=== PATIENT | female | born 1975 | race Caucasian/White ===

== ENCOUNTER 2017-02-17 20:11 | Emergency (ER) | payer BC, OTHER ==
[~2017-02-17] VITALS: Ht 162.6 cm; Wt 94.9 kg
[~2017-02-17 20:11] MED LIST: ACET-1311 PO; IBUP-1050 PO; PRENTAB26 PO
[2017-02-17 20:16] VITALS: TEMP 36.4; Ht 162.6 cm; Wt 94.9 kg
[2017-02-17] MEDS ORDERED: hydrOXYzine HCL IM SOLN 50 MG/ML 1 ML VIAL IM STA (20:38)
[2017-02-17] MEDS ORDERED: hydrOXYzine HCL 25 MG TAB PO STA (20:38)
[2017-02-17] MEDS ORDERED: ATIVAN 1MG HOMEPACK PO ONE (20:45)
[2017-02-17] MEDS ORDERED: DEXAMETHASONE SOD INJ 10 MG/ML VIAL IM ONE (20:45)
[2017-02-17] MEDS ORDERED: MULT1CHW37 PO (20:48)
[2017-02-17] MEDS ORDERED: BCPILLS PO (20:48)
[2017-02-17] MEDS ORDERED: PRED20TA PO (20:48)
[2017-02-17] MEDS ORDERED: EMPTY 8 DRAM VIAL ONE (20:48)
[2017-02-17] MEDS ORDERED: HYDR-3124 PO (20:56)
--- NOTE | 2017-02-17 20:58 | EMERGENCY ROOM VISIT NOTE ---
ED Visit Note First contact with patient: 20:21 CHIEF COMPLAINT: Itchy skin rash 2 weeks HISTORY OF PRESENT ILLNESS: Patient is a 41-year-old white female who presents the emergency department accompanied by her for evaluation of an itchy skin rash 2 weeks. Patient states that her symptoms started 2 weeks ago after they were doing some weeding in their yard and she believes that she was exposed to a poison dahlia plant. She developed the typical, linear, blistering rash primarily on her forearms bilaterally. She treated it conservatively for a week with calamine lotion, but her symptoms progressively worsened and one week ago she was seen at a [facility] facility and started on an oral prednisone taper. She was started on prednisone 60 mg orally for 3 days, tapering down for a total of 18 days of prednisone therapy. Patient states that the rash on her arms began to improve, the blisters dried up and crusted over and they began to feel less itchy, but 4 days ago, Sunday night into Sunday, she began to experience some redness, warmth and itching on her face and neck. She does admit that she was outside in the heat and sun all day Sunday. She did take Benadryl that evening which helped with the itching. She has since developed a fairly confluent red raised rash on her anterior neck and face. It is itchy, and she describes it as a stinging/pins and needles sensation. She was seen again at [facility] yesterday and they recommended discontinuing the prednisone, and using Benadryl more regularly. She states the Benadryl helps to control the itch, but it returns when it wears off. She denies any fever or chills. No drainage or discharge. No eye pain, changes in vision or eye discharge, and she actually reports that she had an eye exam yesterday which was completely normal. There is no swelling of the lips, tongue or throat or difficulty breathing. She does not have any other lesions elsewhere. She denies any other changes in her topical agents including lotions , soaps and detergents. She does admit to having sensitive skin. REVIEW OF SYSTEMS: Review of systems as per HPI. All other systems reviewed were negative. 10 systems reviewed. PMH: Electronic medical records are reviewed and summarized as above/below. See Problem List. SOCIAL HISTORY: Patient lives at home with her and children. Not employed. She does not smoke. PHYSICAL EXAM: Vital Signs: See nurses' notes. CONSTITUTIONAL: Patient is a well-appearing 41-year-old white female who is awake and alert and in moderate distress due to her stated complaint. HEENT: Normocephalic, atraumatic. Pupils equal, round, reactive to light and accommodation. EOMs intact without nystagmus. Sclera are anicteric. Tympanic membranes intact, with normal landmarks. External canals are clear. Oral and nasopharynx are clear. Mucous membranes are moist. SKIN: There is an erythematous confluent eruption over the face and anterior neck with without periorbital edema. No vesicles or urticaria are noted. Lesions on her arms appear linear in nature, and at this point are crusted and scabbed over, no vesicles are noted. The palms of the hands are spared. The lips, throat, and eyeballs are not involved. HEART: Regular rate and rhythm. LUNGS: Clear to auscultation. ED course: The patient was seen and evaluated as above. The rash on her arms does appear to be improving as expected, however the rash on her neck and face does appear to be an extension of the contact dermatitis. Treatment options were discussed with her. She was treated with IM Decadron and hydroxyzine in the emergency department. She was given an Ativan 1 mg home pack to use as she is experiencing some anxiety and anxiousness from both the rash and likely from the prednisone. She was encouraged to apply cool compresses to the area. She should avoid any other topical agents or medications. She will was encouraged to resume the prednisone taper tomorrow, and will be given a prescription for the hydroxyzine to use instead of the Benadryl. She was also advised that she can add ranitidine to the regimen to see she can get a better blockage of the histamine cascade. She does not have any evidence for superimposed cellulitis or infection. Problem List Surgical Problems: (1) History of cholecystectomy Status: Resolved (2) History of oral surgery Status: Resolved Current/Historical Medications Scheduled Control Pills ( Control Pills), 1 TAB PO DAILY Multiple Vitamins W/ Minerals (Multi Adult Gummies), 2 TABS PO DAILY Prednisone (Prednisone), 20 MG PO DAILY Scheduled PRN Acetaminophen (Tylenol), 325-650 MG PO DIRECTED PRN for Pain Hydroxyzine Hcl (Atarax), 25-50 MG PO Q6 PRN for Itching Ibuprofen (Advil), 200-600 MG PO DIRECTED PRN for Pain Allergies Coded Allergies: Penicillins (Verified Allergy, Intermediate, HIVES, 02/17/17) SEVERE HIVES Vital Signs Date Time Temp Pulse Resp B/P (MAP) Pulse Ox O2 Delivery O2 Flow Rate FiO2 02/17/17 20:16 36.4 94 20 146/73 98 Room Air Medications Administered Medications (Trade) Dose Ordered Sig/Dmitry Route Start Time Stop Time Status Last Admin Dose Admin Dexamethasone Sodium Phosphate (Decadron Inj) 10 mg NOW ONCE IM 02/17/17 20:45 02/17/17 20:46 DC 02/17/17 20:52 10 MG Hydroxyzine HCl (Vistaril IM) 50 mg NOW STAT IM 02/17/17 20:38 02/17/17 20:40 DC 02/17/17 20:52 50 MG Hydroxyzine HCl (Vistaril Tab) 50 mg NOW STAT PO 02/17/17 20:38 02/17/17 20:40 DC 02/17/17 20:52 50 MG Lorazepam (Ativan 1MG Home Pack) 1 homepack UD ONCE PO 02/17/17 20:45 02/17/17 20:46 DC 02/17/17 20:51 1 HOMEPACK Departure Information Impression Primary Impression: Contact dermatitis Prescriptions Hydroxyzine Hcl (ATARAX) 25 Mg Tab 25-50 MG PO Q6 Y for Itching, #30 TAB 1 Refill Prov: Dionne Alanis PA 02/17/17 Referrals Cristobal Mccormack MD (PCP) Patient Instructions My [facility] Additional Instructions DO NOT drive, drink alcohol, operate machinery, or perform dangerous activities today. You were given medications in the ER that can affect your ability to safely function or operate a vehicle. Ativan 1 mg tablet: Take one half tablet at bedtime as needed for sleep. Avoid alcohol, operating machinery or dangerous equipment, working on ladders or roofs , DRIVING, or situations where being under the influence may be dangerous. Taking this medication with hydroxyzine will likely produce increased fatigue/ lethargy. Resume prednisone as previously prescribed tomorrow. It is best to take this earlier in the day as some patients note occasional difficulty falling asleep when taken in the late evening. Hydroxyzine 25mg: use 25 to 50 mg as needed every six hours for swelling, itching, or hives. This medication is sedating and will cause drowsiness. Avoid alcohol, operating machinery or dangerous equipment, working on ladders or roofs, DRIVING, or situations where being under the influence may be dangerous. Zantac 75: Take two pills twice a day along with Benadryl as needed for swelling , itching, or hives. Most people know this for its affect on the stomach, but it also acts similar to, but less potent than Benadryl for allergic reactions. Zantac is available [id number]. Cold compresses to the affected area. Read all the package inserts or medication information paperwork provided. If you have any questions or concerns call your primary provider, pharmacist or the ER for assistance. Continue current medications. Return to the emergency department for worsening of your rash, swelling of your face, lips, tongue, or throat, difficulty breathing, vomiting, or as needed. Follow-up with your primary care physician in 2-3 days for a recheck of your current condition.
[2017-02-17 21:27] VITALS: BP 141/73; PULSE 89; O2SAT 97
== END 2017-02-17 21:27 | disposition home or self-care (01) ==
LOC: C.EDB 20:12 → C.EDC 21:27
DX: L23.9 Allergic contact dermatitis, unspecified cause (principal)